=== PATIENT | male | born 1960 | race Caucasian/White ===

== ENCOUNTER 2021-01-23 16:02 | Inpatient (IN) | payer MEDICAID ==
[~2021-01-23] VITALS: Ht 188 cm; Wt 126.4 kg
[2021-01-23 17:10] LABS: Basophils # (auto) 0.1 10 ^3/uL (0-0.2); Basophils % (auto) 0.8 % (0.0-2.0); Eosinophils # (auto) 0.1 10 ^3/uL (0-0.8); Eosinophils % (auto) 0.5 % (0.0-7.0); Hematocrit 42.9 % (41.0-53.0); Lymphocytes # (auto) 2.3 10 ^3/uL (0.4-5.4); Lymphocytes % (auto) 17.4 % (10.0-50.0); Mean Corpuscular Hemoglobin 30.4 pg (28.0-32.0); Mean Corpuscular Hgb Conc. 34.9 g/dL (32.0-36.0); Mean Corpuscular Volume 87.3 fL (80.0-100.0); Monocytes # (auto) 1.1 10 ^3/uL (0-1.3); Monocytes % (auto) 8.2 % (0.0-12.0); Neutrophils # (auto) 9.7 10 ^3/uL (1.6-8.6); Neutrophils % (auto) 73.1 % (37.0-80.0); Nucleated Red Blood Cells % 0.2 %; Platelet Count (auto) 441 10^3/uL (140-450); Red Blood Cells 4.91 10^6/uL (4.5-5.90); Red Cell Distribution Width 14.4 % (11.8-14.3); White Blood Cell 13.3 10^3/uL (4.4-10.8)
[2021-01-23 17:14] LABS: Urine Bacteria NONE SEEN /hpf (None Seen); Urine Blood Negative /uL (Negative); Urine Mucus FEW (None Seen); Urine Specific Gravity 1.024 (1.001-1.035); Urine WBC 1 /hpf (0 - 3)
[2021-01-23 17:27] LABS: Anion Gap 10 (5-15); Blood Alcohol < 3.0 mg/dL (0-5); Blood Urea Nitrogen 9 mg/dL (7-18); Calcium 8.4 mg/dL (8.5-10.1); Carbon Dioxide 23 mmol/L (21-32); Chloride 104 mmol/L (98-107); Glucose 68 mg/dL (74-106); Sodium 137 mmol/L (136-145)
[2021-01-23 17:27] LABS: Alcohol, Urine < 3.0 mg/dL (0-10); Amphetamine Screen, Urine NEGATIVE (NEGATIVE); Barbiturate Scree,Urine NEGATIVE (NEGATIVE); Benzodiazephine Screen, Urine NEGATIVE (NEGATIVE); Cannabinoid Screen, Urine NEGATIVE (NEGATIVE); Cocaine Screen, Urine NEGATIVE (NEGATIVE); Opiate Scree,Urine POSITIVE (NEGATIVE); Phencyclidine Screen, Urine NEGATIVE (NEGATIVE)
[2021-01-23 17:30] LABS: Alanine Aminotransferase 12 U/L (16-61); Alkaline Phosphatase 76 U/L (45-117); Aspartate Aminotransferase 25 U/L (15-37); BUN/Creatinine Ratio 20.5; Bilirubin, Total 1.3 mg/dL (0.2-1.0); GFR African American 255 mL/min; GFR Non-African American 210 mL/min; Total Protein 7.2 g/dL (6.4-8.2)
[2021-01-23] MEDS ORDERED: DEXTROSE 50% SYRINGE 50 ML IV ONE (18:08)
[2021-01-23] MEDS ORDERED: DEXTROSE (50%) 50ML SYRG IV ONE (18:15)
[2021-01-23] MEDS ORDERED: D5W/SOD CHLO 0.9% 1,000 ML IV ONE (18:15)
[2021-01-23 20:50] VITALS: BP 156/98
[2021-01-23] MEDS ORDERED: DEXTROSE (50%) 50ML SYRG IV PRN (21:15)
[2021-01-23] MEDS ORDERED: NALOXONE HCL 0.4 MG/ML VIAL IV ONE (21:15)
[2021-01-23] MEDS ORDERED: ONDANSETRON HCL 4 MG/2 ML VIAL IV PRN (21:15)
[2021-01-23] MEDS ORDERED: cefTRIAXone 1GM/50ML D5W 50 ML IV ONE (21:45)
[2021-01-23] MEDS: D5W/SOD CHL 0.45% 1,000 ML IV SCH (22:01)
[2021-01-23] MEDS: ACCU-CHEK COMFORT CURVE STRIP VI SCH (22:04)
[2021-01-23] MEDS: hydrALAZINE HCL 20 MG/ML VL IV PRN (22:29)
[2021-01-24] VITALS (15 sets, daily range): BP systolic 133–166; BP diastolic 75–97
[2021-01-24] MEDS: ALBUTEROL SULF 2.5 MG/0.5ML(0.5%) NEB SOLN NEB PRN (00:38)
[2021-01-24] MEDS: ACCU-CHEK COMFORT CURVE STRIP VI SCH ×5 (02:00→17:44)
[2021-01-24] MEDS ORDERED: hydrALAZINE HCL 20 MG/ML VL IV ONE (03:00)
[2021-01-24] MEDS ORDERED: METF-372 PO (04:56)
[2021-01-24] MEDS ORDERED: ALBU108A5 INH (04:56)
[2021-01-24] MEDS ORDERED: HYDR50TA15 PO (04:56)
[2021-01-24] MEDS ORDERED: ISO60SRT PO (04:56)
[2021-01-24] MEDS ORDERED: LISI40TA11 PO (04:56)
[2021-01-24] MEDS ORDERED: GLIM4TAB42 PO (04:56)
[2021-01-24] MEDS ORDERED: CANA300T PO (04:56)
[2021-01-24] MEDS ORDERED: MORP15TA PO (04:56)
[2021-01-24] MEDS ORDERED: PANT40T PO (04:56)
[2021-01-24] MEDS ORDERED: CARV3.1240 PO (04:56)
[2021-01-24] MEDS: hydrALAZINE HCL 20 MG/ML VL IV PRN (05:42)
[2021-01-24 06:17] LABS: Basophils # (auto) 0.1 10 ^3/uL (0-0.2); Eosinophils # (auto) 0 10 ^3/uL (0-0.8); Eosinophils % (auto) 0.1 % (0.0-7.0); Hemoglobin 15.1 g/dL (13.5-17.5)
[2021-01-24 06:19] LABS: Basophils % (auto) 0.7 % (0.0-2.0); Hematocrit 43.9 % (41.0-53.0); Lymphocytes # (auto) 2.1 10 ^3/uL (0.4-5.4); Lymphocytes % (auto) 13.8 % (10.0-50.0); Mean Corpuscular Hemoglobin 30.2 pg (28.0-32.0); Mean Corpuscular Hgb Conc. 34.4 g/dL (32.0-36.0); Mean Corpuscular Volume 87.8 fL (80.0-100.0); Monocytes % (auto) 6.5 % (0.0-12.0); Neutrophils % (auto) 78.9 % (37.0-80.0); Nucleated Red Blood Cells % 0.1 %; Platelet Count (auto) 465 10^3/uL (140-450); Red Cell Distribution Width 14.7 % (11.8-14.3); White Blood Cell 15.3 10^3/uL (4.4-10.8)
[2021-01-24 06:34] LABS: Albumin 3.2 g/dL (3.4-5.0); Calcium 8.7 mg/dL (8.5-10.1); Potassium 3.6 mmol/L (3.5-5.1)
[2021-01-24 06:38] LABS: BUN/Creatinine Ratio 23.8; Bilirubin, Total 1.4 mg/dL (0.2-1.0); Total Protein 7.4 g/dL (6.4-8.2)
[2021-01-24] MEDS: D5W/SOD CHL 0.45% 1,000 ML IV SCH ×2 (07:28→16:51)
[2021-01-24] MEDS: cefTRIAXone 1GM/50ML D5W 50 ML IV SCH (09:45)
[2021-01-24] MEDS: ENOXAPARIN SOD 40 MG/0.4 ML SYRINGE SC SCH (09:45)
[2021-01-24] MEDS: PANTOPRAZOLE 40 MG/10 ML VIAL INJ IV SCH (09:45)
[2021-01-24] MEDS ORDERED: hydrALAZINE HCL 20 MG/ML VL IV PRN (10:00)
[2021-01-24] MEDS: InsuLIN REG 1unit/0.01ml Soln (100units/ml) SC SCH (17:53)
[2021-01-25] VITALS (19 sets, daily range): BP systolic 123–156; BP diastolic 59–87
[2021-01-25] MEDS: InsuLIN REG 1unit/0.01ml Soln (100units/ml) SC SCH ×4 (00:33→17:50)
[2021-01-25] MEDS: D5W/SOD CHL 0.45% 1,000 ML IV SCH ×2 (02:23→13:16)
[2021-01-25] MEDS: ALBUTEROL SULF 2.5 MG/0.5ML(0.5%) NEB SOLN NEB PRN (02:24)
[2021-01-25 03:50] LABS: Basophils # (auto) 0.1 10 ^3/uL (0-0.2); Lymphocytes # (auto) 1.9 10 ^3/uL (0.4-5.4)
[2021-01-25 03:52] LABS: Basophils % (auto) 0.6 % (0.0-2.0); Eosinophils # (auto) 0 10 ^3/uL (0-0.8); Eosinophils % (auto) 0.1 % (0.0-7.0); Hematocrit 40.8 % (41.0-53.0); Hemoglobin 13.8 g/dL (13.5-17.5); Lymphocytes % (auto) 8.3 % (10.0-50.0); Mean Corpuscular Hemoglobin 29.6 pg (28.0-32.0); Mean Corpuscular Hgb Conc. 33.8 g/dL (32.0-36.0); Mean Corpuscular Volume 87.5 fL (80.0-100.0); Monocytes # (auto) 1.7 10 ^3/uL (0-1.3); Monocytes % (auto) 7.4 % (0.0-12.0); Neutrophils % (auto) 83.6 % (37.0-80.0); Platelet Count (auto) 458 10^3/uL (140-450); Red Blood Cells 4.67 10^6/uL (4.5-5.90); Red Cell Distribution Width 14.4 % (11.8-14.3); White Blood Cell 22.7 10^3/uL (4.4-10.8)
[2021-01-25 04:06] LABS: Calcium 8.6 mg/dL (8.5-10.1); Potassium 3.2 mmol/L (3.5-5.1)
[2021-01-25 04:11] LABS: BUN/Creatinine Ratio 13.7; Bilirubin, Total 1.8 mg/dL (0.2-1.0); Total Protein 7.1 g/dL (6.4-8.2)
[2021-01-25] MEDS: ACCU-CHEK COMFORT CURVE STRIP VI SCH ×4 (06:19→17:36)
[2021-01-25] MEDS ORDERED: VANCOMYCIN PER PHARMACY 0 MG IV SCH (08:45)
[2021-01-25] MEDS ORDERED: VANCOMYCIN 1GM/250ML 250 ML IV ONE ×2 (09:00→10:00)
[2021-01-25] MEDS: cefTRIAXone 1GM/50ML D5W 50 ML IV SCH (09:05)
[2021-01-25] MEDS: POTASSIUM CHL 20MEQ/100ML 100 ML IV SCH ×3 (09:05→13:16)
[2021-01-25] MEDS: ALBUTEROL SULF 2.5 MG/0.5ML(0.5%) NEB SOLN NEB SCH ×4 (10:09→22:17)
[2021-01-25] MEDS: IPRATROPIUM BROM 0.5 MG/2.5ML INH SOL NEB SCH ×4 (10:09→22:17)
[2021-01-25] MEDS: PANTOPRAZOLE 40 MG/10 ML VIAL INJ IV SCH (10:28)
[2021-01-25] MEDS: ENOXAPARIN SOD 40 MG/0.4 ML SYRINGE SC SCH (10:28)
[2021-01-25] MEDS: ACETYLCYSTEINE 10 %(100MG/ML) SOL 4ML NEB SCH ×3 (14:44→22:16)
[2021-01-25] MEDS: VANCOMYCIN 1GM/250ML 250 ML IV SCH (17:36)
[2021-01-25] MEDS: ATORVASTATIN 20 MG TAB PO SCH (22:27)
[2021-01-26] MEDS: D5W/SOD CHL 0.45% 1,000 ML IV SCH ×3 (00:01→20:43)
[2021-01-26] MEDS: ACCU-CHEK COMFORT CURVE STRIP VI SCH ×4 (00:01→18:18)
[2021-01-26] MEDS: InsuLIN REG 1unit/0.01ml Soln (100units/ml) SC SCH ×4 (00:03→18:21)
[2021-01-26] MEDS: ACETYLCYSTEINE 10 %(100MG/ML) SOL 4ML NEB SCH ×6 (02:04→21:52)
[2021-01-26] MEDS: ALBUTEROL SULF 2.5 MG/0.5ML(0.5%) NEB SOLN NEB SCH ×5 (02:05→21:52)
[2021-01-26] MEDS: VANCOMYCIN 1GM/250ML 250 ML IV SCH ×3 (02:08→18:13)
[2021-01-26] MEDS ORDERED: traMADol HCL 50 MG TAB PO PRN ×2 (04:15)
[2021-01-26 05:00] VITALS: BP 137/81
[2021-01-26] MEDS: IPRATROPIUM BROM 0.5 MG/2.5ML INH SOL NEB SCH ×5 (07:52→21:52)
[2021-01-26] MEDS: cefTRIAXone 1GM/50ML D5W 50 ML IV SCH (08:33)
[2021-01-26 08:58] VITALS: BP 134/76
[2021-01-26 09:34] LABS: Basophils # (auto) 0.1 10 ^3/uL (0-0.2); Basophils % (auto) 0.4 % (0.0-2.0); Eosinophils # (auto) 0.1 10 ^3/uL (0-0.8); Eosinophils % (auto) 0.4 % (0.0-7.0); Hematocrit 39.1 % (41.0-53.0); Hemoglobin 13.1 g/dL (13.5-17.5); Lymphocytes # (auto) 1.6 10 ^3/uL (0.4-5.4); Lymphocytes % (auto) 7.1 % (10.0-50.0); Mean Corpuscular Hemoglobin 29.3 pg (28.0-32.0); Mean Corpuscular Hgb Conc. 33.5 g/dL (32.0-36.0); Mean Corpuscular Volume 87.4 fL (80.0-100.0); Monocytes # (auto) 1.6 10 ^3/uL (0-1.3); Monocytes % (auto) 7.1 % (0.0-12.0); Neutrophils # (auto) 19.5 10 ^3/uL (1.6-8.6); Platelet Count (auto) 419 10^3/uL (140-450); Red Blood Cells 4.47 10^6/uL (4.5-5.90); Red Cell Distribution Width 14.4 % (11.8-14.3)
[2021-01-26] MEDS: PANTOPRAZOLE 40 MG/10 ML VIAL INJ IV SCH (10:40)
[2021-01-26] MEDS: ASPirin 81 mg TAB PO SCH (10:41)
[2021-01-26] MEDS: ENOXAPARIN SOD 40 MG/0.4 ML SYRINGE SC SCH (10:41)
[2021-01-26] MEDS: MORPHINE SULF INJ 2 MG/ML SYRINGE 1ML IV PRN (12:16)
[2021-01-26 13:00] VITALS: BP 126/70
[2021-01-26 13:17] LABS: BUN/Creatinine Ratio 17.6; Calcium 8.3 mg/dL (8.5-10.1); Potassium 3.4 mmol/L (3.5-5.1)
[2021-01-26] MEDS: POTASSIUM CHL 20MEQ/100ML 100 ML IV SCH ×2 (14:53→17:22)
[2021-01-26 16:55] VITALS: BP 149/81
[2021-01-26 17:52] VITALS: BP 149/81
[2021-01-26 22:00] VITALS: BP 143/74
[2021-01-26] MEDS: ATORVASTATIN 20 MG TAB PO SCH (22:00)
[2021-01-27] MEDS: ACCU-CHEK COMFORT CURVE STRIP VI SCH ×4 (00:07→18:19)
[2021-01-27] MEDS: InsuLIN REG 1unit/0.01ml Soln (100units/ml) SC SCH ×4 (00:08→18:21)
[2021-01-27] MEDS: D5W/SOD CHL 0.45% 1,000 ML IV SCH ×2 (00:24→15:51)
[2021-01-27] MEDS: VANCOMYCIN 1GM/250ML 250 ML IV SCH ×4 (01:01→21:48)
[2021-01-27 05:00] VITALS: BP 135/79
[2021-01-27] MEDS: ALBUTEROL SULF 2.5 MG/0.5ML(0.5%) NEB SOLN NEB SCH ×5 (07:18→22:47)
[2021-01-27] MEDS: IPRATROPIUM BROM 0.5 MG/2.5ML INH SOL NEB SCH ×5 (07:18→22:47)
[2021-01-27] MEDS: ACETYLCYSTEINE 10 %(100MG/ML) SOL 4ML NEB SCH ×5 (07:19→22:47)
[2021-01-27 09:00] VITALS: BP 141/67
[2021-01-27 09:34] LABS: Hematocrit 37.5 % (41.0-53.0); Hemoglobin 12.5 g/dL (13.5-17.5); Mean Corpuscular Hemoglobin 29.3 pg (28.0-32.0); Mean Corpuscular Hgb Conc. 33.3 g/dL (32.0-36.0); Mean Corpuscular Volume 88.2 fL (80.0-100.0); Platelet Count (auto) 348 10^3/uL (140-450); Red Blood Cells 4.25 10^6/uL (4.5-5.90); Red Cell Distribution Width 14.4 % (11.8-14.3); White Blood Cell 26.6 10^3/uL (4.4-10.8)
[2021-01-27 09:46] LABS: BUN/Creatinine Ratio 15.4; Calcium 8.2 mg/dL (8.5-10.1); Magnesium 1.9 mg/dL (1.6-2.6); Potassium 3.4 mmol/L (3.5-5.1)
[2021-01-27 09:52] LABS: Band Neutrophils % (manual) 0; Basophils % (manual) 0 (0.0-2.0); Blast Cells 0; Eosinophils % (manual) 0 (0-7); Metamyelocytes % 0; Myelocytes % 0; Promyelocytes % 0; Reactive Lymphocytes 0
[2021-01-27] MEDS: ASPirin 81 mg TAB PO SCH (10:00)
[2021-01-27] MEDS: cefTRIAXone 1GM/50ML D5W 50 ML IV SCH (10:22)
[2021-01-27] MEDS: PANTOPRAZOLE 40 MG/10 ML VIAL INJ IV SCH (10:22)
[2021-01-27] MEDS: ENOXAPARIN SOD 40 MG/0.4 ML SYRINGE SC SCH (10:23)
[2021-01-27 13:00] VITALS: BP 125/70
[2021-01-27 13:36] LABS: Lymphocytes % (manual) 7 (10.0-50.0); Monocytes % (manual) 11 (0-12)
[2021-01-27] MEDS: MORPHINE SULF INJ 2 MG/ML SYRINGE 1ML IV PRN ×2 (13:59→18:30)
[2021-01-27 16:50] VITALS: BP 129/72
[2021-01-27] MEDS: ATORVASTATIN 20 MG TAB PO SCH (20:55)
[2021-01-27] MEDS: MUPIROCIN 2% OINT 15gm or 22gm EACHNOSTRI SCH (21:04)
[2021-01-27 22:00] VITALS: BP 114/73
[2021-01-28] MEDS: ACCU-CHEK COMFORT CURVE STRIP VI SCH ×5 (00:02→23:31)
[2021-01-28] MEDS: MORPHINE SULF INJ 2 MG/ML SYRINGE 1ML IV PRN ×4 (00:04→20:14)
[2021-01-28] MEDS: InsuLIN REG 1unit/0.01ml Soln (100units/ml) SC SCH ×5 (00:07→23:31)
[2021-01-28] MEDS: VANCOMYCIN 1GM/250ML 250 ML IV SCH ×3 (03:50→18:07)
[2021-01-28 04:00] VITALS: BP 134/67
[2021-01-28 05:26] LABS: Basophils # (auto) 0 10 ^3/uL (0-0.2); Basophils % (auto) 0.3 % (0.0-2.0); Eosinophils # (auto) 0.1 10 ^3/uL (0-0.8); Eosinophils % (auto) 0.7 % (0.0-7.0); Hematocrit 36.6 % (41.0-53.0); Hemoglobin 12.5 g/dL (13.5-17.5); Lymphocytes # (auto) 1.5 10 ^3/uL (0.4-5.4); Lymphocytes % (auto) 9.7 % (10.0-50.0); Mean Corpuscular Hgb Conc. 34.2 g/dL (32.0-36.0); Mean Corpuscular Volume 87.6 fL (80.0-100.0); Monocytes # (auto) 1.2 10 ^3/uL (0-1.3); Monocytes % (auto) 7.6 % (0.0-12.0); Neutrophils # (auto) 12.4 10 ^3/uL (1.6-8.6); Neutrophils % (auto) 81.7 % (37.0-80.0); Platelet Count (auto) 343 10^3/uL (140-450); Red Blood Cells 4.17 10^6/uL (4.5-5.90); Red Cell Distribution Width 14.2 % (11.8-14.3); White Blood Cell 15.2 10^3/uL (4.4-10.8)
[2021-01-28 05:45] LABS: BUN/Creatinine Ratio 12.8; Calcium 8.3 mg/dL (8.5-10.1)
[2021-01-28] MEDS: D5W/SOD CHL 0.45% 1,000 ML IV SCH ×3 (06:00→21:15)
[2021-01-28] MEDS: ACETYLCYSTEINE 10 %(100MG/ML) SOL 4ML NEB SCH ×5 (07:23→22:40)
[2021-01-28] MEDS: IPRATROPIUM BROM 0.5 MG/2.5ML INH SOL NEB SCH ×5 (07:23→22:40)
[2021-01-28] MEDS: ALBUTEROL SULF 2.5 MG/0.5ML(0.5%) NEB SOLN NEB SCH ×5 (07:23→22:40)
[2021-01-28 09:00] VITALS: BP 147/84
[2021-01-28] MEDS: MUPIROCIN 2% OINT 15gm or 22gm EACHNOSTRI SCH ×2 (09:47→21:34)
[2021-01-28] MEDS: cefTRIAXone 1GM/50ML D5W 50 ML IV SCH (09:47)
[2021-01-28] MEDS: PANTOPRAZOLE 40 MG/10 ML VIAL INJ IV SCH (09:48)
[2021-01-28] MEDS: ASPirin 81 mg TAB PO SCH (09:48)
[2021-01-28] MEDS: ENOXAPARIN SOD 40 MG/0.4 ML SYRINGE SC SCH (09:49)
[2021-01-28] MEDS: POTASSIUM CHL 20MEQ/100ML 100 ML IV SCH ×3 (11:07→16:16)
[2021-01-28 12:46] VITALS: BP 155/65
[2021-01-28 16:46] VITALS: BP 150/83
[2021-01-28] MEDS: ATORVASTATIN 20 MG TAB PO SCH (21:34)
[2021-01-28 22:00] VITALS: BP 160/90
[2021-01-29] MEDS: VANCOMYCIN 1GM/250ML 250 ML IV SCH ×3 (03:01→22:56)
[2021-01-29] MEDS: MORPHINE SULF INJ 2 MG/ML SYRINGE 1ML IV PRN ×5 (04:07→22:16)
[2021-01-29 05:00] VITALS: BP 155/91
[2021-01-29] MEDS: InsuLIN REG 1unit/0.01ml Soln (100units/ml) SC SCH ×3 (05:14→18:31)
[2021-01-29] MEDS: ACCU-CHEK COMFORT CURVE STRIP VI SCH ×3 (05:14→18:30)
[2021-01-29] MEDS: ACETYLCYSTEINE 10 %(100MG/ML) SOL 4ML NEB SCH ×5 (06:31→22:14)
[2021-01-29] MEDS: ALBUTEROL SULF 2.5 MG/0.5ML(0.5%) NEB SOLN NEB SCH ×5 (06:31→22:14)
[2021-01-29] MEDS: IPRATROPIUM BROM 0.5 MG/2.5ML INH SOL NEB SCH ×5 (06:31→22:14)
[2021-01-29] MEDS: D5W/SOD CHL 0.45% 1,000 ML IV SCH (07:15)
[2021-01-29 07:36] LABS: Basophils # (auto) 0 10 ^3/uL (0-0.2); Basophils % (auto) 0.6 % (0.0-2.0); Eosinophils # (auto) 0 10 ^3/uL (0-0.8); Eosinophils % (auto) 0.3 % (0.0-7.0); Hemoglobin 12.8 g/dL (13.5-17.5); Lymphocytes # (auto) 0.8 10 ^3/uL (0.4-5.4); Lymphocytes % (auto) 11.8 % (10.0-50.0); Mean Corpuscular Hemoglobin 29.5 pg (28.0-32.0); Mean Corpuscular Hgb Conc. 33.7 g/dL (32.0-36.0); Mean Corpuscular Volume 87.4 fL (80.0-100.0); Monocytes # (auto) 0.8 10 ^3/uL (0-1.3); Monocytes % (auto) 12.3 % (0.0-12.0); Platelet Count (auto) 318 10^3/uL (140-450); Red Blood Cells 4.35 10^6/uL (4.5-5.90); Red Cell Distribution Width 14.3 % (11.8-14.3); White Blood Cell 6.6 10^3/uL (4.4-10.8)
[2021-01-29 07:54] LABS: Potassium 3.2 mmol/L (3.5-5.1)
[2021-01-29 08:00] VITALS: BP 162/86
[2021-01-29 08:09] LABS: BUN/Creatinine Ratio 9.8; Calcium 8.3 mg/dL (8.5-10.1); Magnesium 1.7 mg/dL (1.6-2.6)
[2021-01-29] MEDS: cefTRIAXone 1GM/50ML D5W 50 ML IV SCH (08:39)
[2021-01-29] MEDS: MUPIROCIN 2% OINT 15gm or 22gm EACHNOSTRI SCH ×2 (10:05→22:15)
[2021-01-29] MEDS: ENOXAPARIN SOD 40 MG/0.4 ML SYRINGE SC SCH (10:05)
[2021-01-29] MEDS: PANTOPRAZOLE 40 MG/10 ML VIAL INJ IV SCH (10:05)
[2021-01-29] MEDS: ASPirin 81 mg TAB PO SCH (10:05)
[2021-01-29] MEDS ORDERED: POTASSIUM EFFERVESENT TAB 25 MEQ GT ONE (11:00)
[2021-01-29] MEDS ORDERED: D5W/SOD CHL 0.45% 1,000 ML IV SCH (11:00)
[2021-01-29 11:54] VITALS: BP 140/83
[2021-01-29 16:00] VITALS: BP 147/85
[2021-01-29 20:36] VITALS: BP 147/85
[2021-01-29 22:00] VITALS: BP 124/75
[2021-01-29] MEDS: ATORVASTATIN 20 MG TAB PO SCH (22:15)
[2021-01-30] MEDS: ACCU-CHEK COMFORT CURVE STRIP VI SCH ×3 (00:07→12:37)
[2021-01-30] MEDS: InsuLIN REG 1unit/0.01ml Soln (100units/ml) SC SCH ×3 (00:09→12:37)
[2021-01-30 05:00] VITALS: BP 143/69
[2021-01-30] MEDS: ALBUTEROL SULF 2.5 MG/0.5ML(0.5%) NEB SOLN NEB SCH ×3 (07:08→13:25)
[2021-01-30] MEDS: IPRATROPIUM BROM 0.5 MG/2.5ML INH SOL NEB SCH ×3 (07:08→13:25)
[2021-01-30] MEDS: ACETYLCYSTEINE 10 %(100MG/ML) SOL 4ML NEB SCH ×3 (07:09→13:26)
[2021-01-30 07:39] LABS: BUN/Creatinine Ratio 6.4; Calcium 8.1 mg/dL (8.5-10.1); Potassium 3.4 mmol/L (3.5-5.1)
[2021-01-30 07:40] LABS: Hematocrit 38.5 % (41.0-53.0); Hemoglobin 12.8 g/dL (13.5-17.5); Mean Corpuscular Hemoglobin 29.2 pg (28.0-32.0); Mean Corpuscular Hgb Conc. 33.3 g/dL (32.0-36.0); Mean Corpuscular Volume 87.6 fL (80.0-100.0); Platelet Count (auto) 298 10^3/uL (140-450); Red Cell Distribution Width 14.2 % (11.8-14.3)
[2021-01-30 07:41] LABS: Basophils % (manual) 0 (0.0-2.0); Blast Cells 0; Metamyelocytes % 0; Myelocytes % 0; Promyelocytes % 0; Reactive Lymphocytes 0
[2021-01-30 08:17] LABS: Band Neutrophils % (manual) 2; Eosinophils % (manual) 3 (0-7); Lymphocytes % (manual) 22 (10.0-50.0); Monocytes % (manual) 25 (0-12)
[2021-01-30] MEDS: cefTRIAXone 1GM/50ML D5W 50 ML IV SCH (08:58)
[2021-01-30 09:00] VITALS: BP 139/93
[2021-01-30] MEDS: MORPHINE SULF INJ 2 MG/ML SYRINGE 1ML IV PRN ×2 (09:04→13:37)
[2021-01-30] MEDS: VANCOMYCIN 1GM/250ML 250 ML IV SCH (10:32)
[2021-01-30] MEDS: ASPirin 81 mg TAB PO SCH (10:33)
[2021-01-30] MEDS: ENOXAPARIN SOD 40 MG/0.4 ML SYRINGE SC SCH (10:33)
[2021-01-30] MEDS: PANTOPRAZOLE 40 MG/10 ML VIAL INJ IV SCH (10:33)
[2021-01-30] MEDS: MUPIROCIN 2% OINT 15gm or 22gm EACHNOSTRI SCH (10:33)
[2021-01-30] MEDS ORDERED: POTASSIUM EFFERVESENT TAB 25 MEQ PO ONE (10:45)
[2021-01-30 13:05] VITALS: BP 133/69
== END 2021-01-30 15:45 | disposition hospice, home (50) | DRG 420 ==
LOC: EDBD 16:02 → ER 16:02 → EDUNIT# 16:02 → TELE 21:11 → ICU WEST 01-24 07:57 → TELE-CENTR 01-25 17:00
PROVIDERS: ADMIT Hospitalist; ATTEND Hospitalist
DX: E11.649 Type 2 diabetes mellitus with hypoglycemia without coma (principal); G93.41 Metabolic encephalopathy; B95.62 Methicillin resistant Staphylococcus aureus infection as the cause of diseases classified elsewhere; I11.0 Hypertensive heart disease with heart failure; Z99.81 Dependence on supplemental oxygen; I50.9 Heart failure, unspecified; Z51.5 Encounter for palliative care; E11.65 Type 2 diabetes mellitus with hyperglycemia; E66.01 Morbid (severe) obesity due to excess calories; Z74.01 Bed confinement status; I25.10 Atherosclerotic heart disease of native coronary artery without angina pectoris; E87.6 Hypokalemia; R09.02 Hypoxemia; R62.7 Adult failure to thrive; B95.7 Other staphylococcus as the cause of diseases classified elsewhere; J44.9 Chronic obstructive pulmonary disease, unspecified; Z86.73 Personal history of transient ischemic attack (TIA), and cerebral infarction without residual deficits; Z95.1 Presence of aortocoronary bypass graft; F17.210 Nicotine dependence, cigarettes, uncomplicated; Z68.31 Body mass index [BMI] 31.0-31.9, adult; M25.462 Effusion, left knee; Z20.822 Contact with and (suspected) exposure to COVID-19
CPT/HCPCS: 36415; 36600; 70450; 71045; 73700; 80048; 80053; 80202; 80307; 80320; 81001; 82140; 82565; 82805; 82962; 83605; 83735; 83880; 84443; 84484; 85007; 85025; 85027; 87040; 87081; 87426; 92507; 92610; 93005; 93306; 94640; 94667; 94668; 95819; 96361; 96365; 96375; 96376; 97110; 99291; C9113; G0378; J0696; J1815; J3480